=== PATIENT | female | born 1990 ===

== ENCOUNTER 2018-02-11 21:29 | Emergency (ER) | payer OTHER ==
[2018-02-11 21:48] VITALS: BMI 34.2
[2018-02-11] MEDS: Lactated Ringer's 1,000 ML IV SCH ×2 (22:23→23:30)
[2018-02-11 23:37] LABS: SQUAMOUS EPITHIAL 3 /hpf (0-5); URINE BACTERIA RARE (<OCC); URINE BILIRUBIN NEGATIVE (NEGATIVE); URINE BLOOD NEGATIVE (NEGATIVE); URINE CLARITY SLIGHTY-CLOUDY (Clear); URINE COLOR YELLOW (YELLOW); URINE GLUCOSE (UA) NEG (Normal); URINE LEUKOCYTE ESTERASE SMALL Leu/uL (Negative); URINE PROTEIN NEGATIVE (NEGATIVE)
--- NOTE | 2018-02-12 00:05 | OBHP ---
Datetime: 02/11/2018 21:46 IP Adm Impression: , intrauterine IP Admit Plan: Observation/Evaluation Admit Comment, IP Provider: 27 yo with IUP at 36+ wks presents to [facility] today c/o decreased f etal movements since 2 hours ago. She states she has been trying ice and cold water and food w/o resu lts. Denies any VB, LOF, CTX. PNC: Dr Leung OBH: x3, miscarriages X2 PMhx: denies FMH: denies. PSH: tonsilectomy as child. NKDA Shx: No toxic habits PE: see PE tab VSS. A/P: IUP at 36 weeks with decreased FM. - Observation/reeval - /maternal monitoring - IV fluids. Case seen and examined with Dr Eldridge. Yadira PGY 1. Addendum: I saw and examined patient at presentation. Pt with c/o decreased FM, but reports good FM at this time. FHT reactive. Short areas of tachy with recovery to baseline 130s with good reactivity. Renetta n to check BPP and continue observation. FHT reactive with accels at this time. Discussed plan with patient and patient questions answered. [place] Extremities - PN: Normal Abdomen - PN: Normal Lungs - PN: Normal Heart - PN: Normal Neurologic - PN: Normal HEENT - PN: Normal General - PN: Normal FHR - Baseline A Provider: 150 Contraction Comments Provider: occasional Comments, ACOG Physical Exam: Chest: CTA B/L Heart - RRR Abd: soft, no tender Ext: Normal FHR - 150s [place] - Occasional EGA AdmitDate IP: 36.1 Vital Signs Provider: Reviewed; Within Normal Limits IP Chief Complaint: Decreased movement NICHD Variability Prov Fetus A: Moderate 6-25bpm NICHD Accel Fetus A IP Provider: 15X15 FHR Category Provider Fetus A: Category I NICHD Decel Fetus A IP Provider: None Dilatation, Provider: 0 Effacement, Provider: 0 Station, Provider: -3
[2018-02-12] MEDS: Lactated Ringer's 1,000 ML IV SCH (00:30)
--- NOTE | 2018-02-12 02:24 | OBPN ---
Datetime: 02/12/2018 02:21 IP Progress Note Comment: Preliminary BPP result 01/25. At this time, patient reports good move ment. heart tracing reactive with moderate baseline variability and positive accelerations. Renetta n to keep patient for monitoring. Discussed plan with patient and all patient questions answered. Datetime: 02/11/2018 21:46 Contraction Comments Provider: occasional FHR - Baseline A Provider: 150 Vital Signs Provider: Reviewed; Within Normal Limits NICHD Accel Fetus A IP Provider: 15X15 FHR Category Provider Fetus A: Category I NICHD Variability Prov Fetus A: Moderate 6-25bpm Dilatation, Provider: 0 Effacement, Provider: 0 Station, Provider: -3 NICHD Decel Fetus A IP Provider: None
[2018-02-12 11:51] VITALS: BP 125/71; PULSE 80; O2SAT 100
--- NOTE | 2018-02-12 13:39 | US ---
PROCEDURE: OB Pelvic Ultrasound HISTORY: tachycardia ; 10/14/2015 prior to ultrasound, an average ultrasonic age of 19 weeks 5 days was determined. COMPARISON: ultrasound 10/14/2015. FINDINGS: A single viable intrauterine gestation is identified with average ultrasonic age of 37 weeks 0 days which represents normal interval growth compared prior ultrasound noted above. cardiac activity is recorded at 122.5 beats per minute. No placenta previa or abruption. Imaging of this has been limited to biophysical profile and biometry as discussed below: Biparietal diameter 9.2 cm corresponds to 37 weeks 4 days. Head circumference 32.5 cm corresponds to 36 weeks 5 days. Abdominal circumference 31.9 cm corresponds to 35 weeks 6 days. Femur length 7.4 cm corresponds to 38 weeks 0 days HC/AC ratio 1.02 which falls within the normal range with estimated weight of 6 lb 10 oz or 3004 g. estimated date of delivery 02/23/2018. Biophysical profile: breathing movements 2. movements 0. tones 2. (Qualitative) Amniotic fluid 2. Total score: 6/8. The was observed for 30 minutes and the technologist apparently gave orange juice to the mother cool also altered or maternal position. CERVIX: Measures 4.4 cm. Long and closed. No cervical abnormality seen. FREE FLUID: None. OTHER FINDINGS: None. IMPRESSION: Biophysical profile measures 6/8. Single viable intrauterine gestation with average ultrasonic age of 37 weeks 0 days is concordant with normal interval growth. Please see discussion above. Concordant preliminary report from [facility], 02/12/2018.
--- NOTE | 2018-02-12 19:19 | OBPN ---
Datetime: 02/12/2018 19:17 IP Progress Note Comment: Late note entry. This morning, patient reported wanting to leave OB ED before ultrasound completed. I discussed wit h patient the risks of not repeating biophysical profile to ensure well-being. I discussed the risks of intrauterine demise as well as injury if well-being not reassuring. Bella t states that she does not want to wait to have ultrasound done. Patient signed AGAINST MEDICAL ADVIC E form. I strongly recommended patient to wait until repeat ultrasound completed but patient declined . All patient questions answered.
== END 2018-02-12 07:15 | disposition left against medical advice (07) ==
LOC: H.EROB2 21:29
DX: O36.8131 Decreased fetal movements, third trimester, fetus 1 (principal); Z3A.36 36 weeks gestation of pregnancy
CPT/HCPCS: 76818; 81003; 96360; 99284; J7120

== ENCOUNTER 2018-03-03 01:06 | Inpatient (IN) | payer OTHER ==
--- NOTE | 2018-03-03 02:25 | OBHP ---
Datetime: 03/03/2018 02:13 IP Adm Impression: Term, intrauterine ; No Active Labor IP Chief Complaint Other: vaginal spotting IP Admit Plan: Observation/Evaluation Admit Comment, IP Provider: 27yo [id number] with IUP at 39wks presents here today c/o intermittent pelv ic pressure and vaginal spotting after wiping. She denies any leakage of fluid and felt good mo vement. PNC with Dr Sanchez. Uncomplicated course as per patient. O; appears well and is not in apparrent distress Chest: CTA B/L Abd: Soft, NT, BS- presnt TOCO- None FHR - 150s, regular with moderate variabilities SVE: 2/thick/-2 Assessment: IUP at 39weeks NST- Reactive Maternel pelvic pressure Plan after discussion with Dr Sanchez on phone. - Continue to monitor for possible progression to labor Pelvic Type - PN: Adequate Extremities - PN: Normal Abdomen - PN: Normal Back - PN: Normal Lungs - PN: Normal Heart - PN: Normal Neurologic - PN: Normal General - PN: Normal FHR - Baseline A Provider: 150 Membranes, Provider: Intact Contraction Comments Provider: occasional Gestation - Est Wks by US: 39.0 EGA AdmitDate IP: 39.0 Vital Signs Provider: Reviewed IP Chief Complaint: Maternal discomfort; Other NICHD Variability Prov Fetus A: Moderate 6-25bpm NICHD Accel Fetus A IP Provider: 15X15 FHR Category Provider Fetus A: Category I NICHD Decel Fetus A IP Provider: None Dilatation, Provider: 2 Effacement, Provider: thick Station, Provider: -2
--- NOTE | 2018-03-03 07:08 | OBHP ---
Datetime: 03/03/2018 07:00 IP Adm Impression: Term, intrauterine ; No Active Labor IP Admit Plan: Observation/Evaluation Admit Comment, IP Provider: Patient repoted intermittent pelvic discomfort No vaginal bleeding. O: Chest: CTA B/L Abd: Soft, NT, BS- present TOCO- None FHR- Category 1 SVE: 1-2/40/-3 Assessment: IUP at 39wks Pelvic Pressure NST Reactive. Plan: Continue monitoring Patient would be further evaluated by Dr Sanchez today. Abdomen - PN: Normal Lungs - PN: Normal Heart - PN: Normal Thyroid - PN: Normal General - PN: Normal FHR - Baseline A Provider: 150s Membranes, Provider: Intact Contraction Comments Provider: Irritability Gestation - Est Wks by US: 39.0 EGA AdmitDate IP: 39.0 Vital Signs Provider: Reviewed IP Chief Complaint: Maternal discomfort NICHD Variability Prov Fetus A: Moderate 6-25bpm NICHD Accel Fetus A IP Provider: 15X15 FHR Category Provider Fetus A: Category I Dilatation, Provider: 1-2 Effacement, Provider: 40 Station, Provider: -3
[2018-03-03] MEDS: Lactated Ringer's 1,000 ML IV SCH ×2 (09:30→19:34)
[2018-03-03] MEDS ORDERED: Lactated Ringer's 1,000 ML IV ONE (10:07)
[2018-03-03] MEDS ORDERED: Oxytocin 30 units/LR 500ML 30 U/500 ML BAG IV PRN (10:26)
[2018-03-03 11:07] VITALS: RESP 18
[2018-03-03] MEDS ORDERED: Oxytocin 30 units/LR 500ML 30 U/500 ML BAG IV ONE (11:12)
[2018-03-03 12:57] LABS: BASO % 0.5 % (0.0-2.0); EOS % 0.6 % (0.0-4.0); HEMOGLOBIN 11.7 g/dL (12.0-16.0); LYMPH # 1.9 K/uL (1.0-4.3); LYMPH % 25.8 % (20.0-40.0); MEAN CELL VOLUME 85.2 fl (81.0-99.0); MEAN CORPUSCULAR HEMOGLOBIN 29.2 pg (27.0-31.0); MEAN CORPUSCULAR HGB CONC 34.2 g/dL (33.0-37.0); MEAN PLATELET VOLUME 9.6 fl (7.2-11.7); MONO # 0.6 K/uL (0.0-0.8); MONO % 8.1 % (0.0-10.0); NEUT # 4.7 K/uL (1.8-7.0); NRBC % 0.1 % (0.0-0.0); RBC 4.02 Mil/uL (3.80-5.20); RED CELL DISTRIBUTION WIDTH 13.2 % (11.5-14.5); WHITE BLOOD COUNT 7.2 K/uL (4.8-10.8)
[2018-03-03] MEDS ORDERED: Fentanyl/Bupivacaine HCl 250 ML EPI ONE (15:00)
--- NOTE | 2018-03-03 18:51 | OBDS ---
MATERNAL INFORMATION Estimated Blood Loss (ml): 200ml Maternal Complications: None Provider Comments: delivery of live baby boy 9/9 clear fluid cord with [address] LABOR SUMMARY EDC: 03/10/2018 00:00 No. Babies in Womb: 1 Attempted: No Labor Anesthesia: Epidural LABOR INFORMATION Reason for Induction Other: in labor Onset of Labor: 03/03/2018 14:00 Complete Dilatation: 03/03/2018 18:00 Oxytocin: Augmentation Group B Beta Strep: Negative Antibiotics # of Doses: 0 Steroids Given: None Reason Steroids Not Administered: Not Applicable Other Reason Not Administered: Not required MEMBRANES Membranes Rupture Method: Artificial Rupture of Membranes: 03/03/2018 15:00 Length of Rupture (hrs): 3.40 Amniotic Fluid Color: Clear Amniotic Fluid Amount: Small Amniotic Fluid Odor: Normal STAGES OF LABOR Stage 1 hrs: 4 Stage 1 min: 0 Stage 2 hrs: 0 Stage 2 min: 24 Stage 3 hrs: 0 Stage 3 min: 6 Total Time in Labor hrs: 4 Total Time in Labor min: 30 VAGINAL DELIVERY Episiotomy: None Laceration Extension: N/A Laceration Type: None Laceration Repair: No Laceration Repair Note: none Initial Vag Sponge Count: 5 Final Vag Sponge Count: 5 Initial Vag Sharps Count: 0 Final Vag Sharps Count: 0 Sponge Count Correct: Yes Sharps Count Correct: Yes Count Comment: correct BABY A INFORMATION Delivery Date/Time: 03/03/2018 18:24 Method of Delivery: Vaginal Born in Route : No : N/A Forceps: N/A Vacuum Extraction: N/A Shoulder Dystocia : No SHOULDER DYSTOCIA BABY A Infant Delivery Date/Time: 03/03/2018 18:24 PRESENTATION/POSITION BABY A Presentation: Cephalic Cephalic Presentation: Vertex Vertex Position: Left Occipital Anterior Breech Presentation: N/A PLACENTA INFORMATION BABY A Placenta Delivery Time : 03/03/2018 18:30 Placenta Method of Delivery: Spontaneous Placenta Status: Delivered SCORES BABY A Heart Rate 1 min: >100 bpm Resp Effort 1 min: Good Cry Reflex Irritability 1 min: Cough or Sneeze or Pulls Away Muscle Tone 1 min: Active Motion Color 1 min: Body [place], Extremities Blue Resuscitation Effort 1 min: N/A SCORE 1 MIN: 9 Heart Rate 5 min: >100 bpm Resp Effort 5 min: Good Cry Reflex Irritability 5 min: Cough or Sneeze or Pulls Away Muscle Tone 5 min: Active Motion Color 5 min: Body [place], Extremities Blue Resuscitation Effort 5 min: N/A SCORE 5 MIN: 9 INFORMATION BABY A Gestational Age at Delivery: 39.0 Gestational Status: Term Outcome : Liveborn Condition : Stable Infant Sex: Male WEIGHT/LENGTH BABY A Birthweight (gms): 3815 Infant Weight (lb): 8 Weight (oz): 7 Infant Length Inches: 20.00 Length cms: 50.8 CORD INFORMATION BABY A No. Cord Vessels: 3 Nuchal Cord : N/A Cord Blood Taken: No Infant Suction: Mouth; Nose ASSESSMENT BABY A Infant Complications: None
--- NOTE | 2018-03-03 18:54 | OBADHP ---
Datetime: 03/03/2018 07:00 Admit Comment, IP Provider: Patient repoted intermittent pelvic discomfort No vaginal bleeding.uneventful course admitted for delivery O: Chest: CTA B/L Abd: Soft, NT, BS- present TOCO- None FHR- Category 1 SVE: 1-2/40/-3 Assessment: IUP at 39wks Pelvic Pressure NST Reactive. Plan: Continue monitoring Patient would be further evaluated by Dr Sanchez today. Abdomen - PN: Normal Lungs - PN: Normal Heart - PN: Normal Thyroid - PN: Normal General - PN: Normal FHR - Baseline A Provider: 150s Membranes, Provider: Intact Contraction Comments Provider: Irritability Gestation - Est Wks by US: 39.0 Vital Signs Provider: Reviewed IP Chief Complaint: Maternal discomfort NICHD Variability Prov Fetus A: Moderate 6-25bpm NICHD Accel Fetus A IP Provider: [id number] FHR Category Provider Fetus A: Category I Dilatation, Provider: 1-2 Effacement, Provider: 40 Station, Provider: -3 EGA AdmitDate IP: 39.0 IP Adm Impression: Term, intrauterine ; No Active Labor IP Admit Plan: Observation/Evaluation Datetime: 03/03/2018 02:13 IP Chief Complaint Other: vaginal spotting Pelvic Type - PN: Adequate Extremities - PN: Normal Back - PN: Normal Neurologic - PN: Normal NICHD Decel Fetus A IP Provider: None Datetime: 02/11/2018 21:46 HEENT - PN: Normal Comments, ACOG Physical Exam: Chest: CTA B/L Heart - RRR Abd: soft, no tender Ext: Normal FHR - 150s [place] - Occasional
[2018-03-03] MEDS ORDERED: Oxycodone/Acetaminophen 5/325 mg Tab PO PRN ×4 (18:56→20:53)
[2018-03-03] MEDS ORDERED: Benzocaine/Menthol SPRAY TOP PRN ×2 (18:56→20:53)
[2018-03-04 06:37] LABS: BASO # 0.1 K/uL (0.0-0.2); BASO % 0.6 % (0.0-2.0); EOS % 0.4 % (0.0-4.0); HEMOGLOBIN 11.8 g/dL (12.0-16.0); LYMPH # 2.1 K/uL (1.0-4.3); LYMPH % 22.3 % (20.0-40.0); MEAN CELL VOLUME 84.5 fl (81.0-99.0); MEAN CORPUSCULAR HEMOGLOBIN 29.3 pg (27.0-31.0); MEAN CORPUSCULAR HGB CONC 34.7 g/dL (33.0-37.0); MEAN PLATELET VOLUME 8.9 fl (7.2-11.7); MONO # 0.7 K/uL (0.0-0.8); MONO % 7.2 % (0.0-10.0); NEUT # 6.4 K/uL (1.8-7.0); NEUT % 69.5 % (50.0-75.0); NRBC % 0.1 % (0.0-0.0); RBC 4.03 Mil/uL (3.80-5.20); RED CELL DISTRIBUTION WIDTH 13.5 % (11.5-14.5); WHITE BLOOD COUNT 9.2 K/uL (4.8-10.8)
[2018-03-04] MEDS: Multivitamin With Minerals Tab PO SCH (08:59)
[2018-03-04] MEDS ORDERED: Multivitamin With Minerals Tab PO SCH (09:00)
--- NOTE | 2018-03-04 10:19 | OBPPN ---
Datetime: 03/04/2018 10:13 PP Pain Prov: Within normal limits PP Nausea Prov: Denies PP Flatus Prov: Yes PP BM Prov: No PP Breasts Prov: Normal PP Heart Prov: Normal PP Lungs Prov: Normal PP Abdomen/Uterus Prov: Normal PP Lochia Prov: Normal PP Vulva/Perineum Prov: Normal PP CVA Tenderness Prov: Normal PP Extremities Prov: Normal PP Progress Prov: Normal PP Impression Prov: Normal progression PP Plan Prov: Continue present management PP Progress Note Prov: stable ppd1 no complaints today continue present care IP PP Procedures: None Vital Signs Provider PP: Reviewed; Within Normal Limits
--- NOTE | 2018-03-05 08:01 | OBPPN ---
Datetime: 03/05/2018 07:58 PP Pain Prov: Within normal limits PP Nausea Prov: Denies PP Flatus Prov: Yes PP BM Prov: Yes PP Breasts Prov: Normal PP Heart Prov: Normal PP Lungs Prov: Normal PP Abdomen/Uterus Prov: Normal PP Lochia Prov: Normal PP Vulva/Perineum Prov: Normal PP CVA Tenderness Prov: Normal PP Extremities Prov: Normal PP Progress Prov: Normal PP Impression Prov: Normal progression PP Plan Prov: Continue present management PP Progress Note Prov: stable ppd2 continue present care IP PP Procedures: None Vital Signs Provider PP: Reviewed; Within Normal Limits
[2018-03-05] MEDS: Multivitamin With Minerals Tab PO SCH (08:15)
[2018-03-05 23:06] VITALS: BP 116/71; PULSE 67; TEMP 98.4; O2SAT 100
== END 2018-03-05 10:30 | disposition home or self-care (01) | DRG 373 ==
LOC: H.EROB2 01:06 → H.EROB 04:10 → OBSVTOIN 10:07 → H.L&D 10:24 → H.OB/GYN 21:01
PROVIDERS: ADMIT Specialist; ATTEND Specialist
PROC: 10E0XZZ Delivery of Products of Conception, External Approach (ICD-10-PCS; principal; 2018-03-03)
PROC: 10907ZC Drainage of Amniotic Fluid, Therapeutic from Products of Conception, Via Natural or Artificial Opening (ICD-10-PCS; 2018-03-03)
PROC: 4A1HXCZ Monitoring of Products of Conception, Cardiac Rate, External Approach (ICD-10-PCS; 2018-03-03)
DX: O80 Encounter for full-term uncomplicated delivery (principal); Z37.0 Single live birth; Z3A.39 39 weeks gestation of pregnancy